=== PATIENT | female | born 1970 | race Caucasian/White ===

== ENCOUNTER 2016-07-23 19:44 | Emergency (ER) | payer MEDICAID ==
[~2016-07-23] VITALS: Ht 154.9 cm; Wt 86.5 kg
[~2016-07-23 19:44] MED LIST: ACET500C5 PO; ALB.5NB20 IH; IBUP200C11 PO; NITR-58 PO; PHEN-538 PO; ZOF8 PO; [UNRECOGNIZED DRUG - CODE] INH
[2016-07-23 20:03] VITALS: Ht 154.9 cm; Wt 86.5 kg
[2016-07-23] MEDS ORDERED: OSLT75C PO (20:13)
[2016-07-23] MEDS ORDERED: CETI10CA PO (20:13)
[2016-07-23] MEDS ORDERED: GUAI120S26 PO (20:13)
[2016-07-23] MEDS ORDERED: ALBU8.5H3 INH (20:13)
[2016-07-23] MEDS ORDERED: IBUP-1542 PO (20:13)
--- NOTE | 2016-07-23 20:20 | ERD ---
ER Documentation Chief Complaint Date/Time DATE: 07/23/16 TIME: 20:16 Chief Complaint fever, body aches, cough, cold symptoms HPI 35-year-old female presents here in emergency department for complaint of fever and bodyaches cough runny congestion for the last 2 days. Patient has been having dry cough, does not cough up any phlegm or blood. Patient does not have any shortness of breath or wheezing. Patient has been having runny nose nasal congestion with clear nasal discharge. Patient does not complain of sore throat or ear pain. ROS All systems reviewed and are negative except as per history of present illness. Medications Home Meds Active Scripts Ibuprofen* (Motrin*) 600 Mg Tab, 600 MG PO Q6H Y for PAIN AND OR ELEVATED TEMP, #30 TAB Prov:KATY WILSON NP 07/23/16 Oseltamivir Phosphate* (Tamiflu*) 75 Mg Capsule, 75 MG PO BID for 5 Days, CAP Prov:KATY WILSON NP 07/23/16 Albuterol Sulfate* (Proair HFA*) 8.5 Gm Hfa.aer.ad, 2 PUFF INH Q4H Y for WHEEZING AND SOB, #1 INHALER Prov:KATY WILSON NP 07/23/16 Cetirizine Hcl* (Zyrtec*) 10 Mg Capsule, 10 MG PO DAILY, #30 TAB.CHEW Prov:KATY WILSON NP 07/23/16 Rohztbeqliz-J-Yixeaibqnq Hb* (Guaifenesin* DM Syrup) 120 Ml Syrup, 10 ML PO Q4H Y for COUGH, #120 ML Prov:KATY WILSON NP 07/23/16 Phenazopyridine Hcl* (Pyridium*) 200 Mg Tab, 200 MG PO TID Y for URINARY PAIN for 2 Days, #6 TAB Prov:MARCELLUS MERCHANT PA-C 01/13/16 Nitrofurantoin Monohyd Macrocr* (Macrobid*) 100 Mg Capsr, 100 MG PO BID for 7 Days, CAP Prov:MARCELLUS MERCHANT PA-C 01/13/16 Ibuprofen* (Advil*) 200 Mg Capsule, 200 MG PO Q6H Y for PAIN, #30 CAP 0 Refills Prov:KENDRA EVANGELISTA PA-C 05/12/15 Acetaminophen* (Tylophen*) 500 Mg Capsule, 500 MG PO Q6H Y for FEVER, #30 TAB 0 Refills Prov:KENDRA EVANGELISTA PA-C 05/12/15 Ondansetron Hcl* (Zofran* ODT) 8 mg -ODT Tab.disper, 8 MG PO Q6 Y for NAUSEA AND /OR VOMITING for 10 Days, TAB Prov:KENDRA EVANGELISTAJayden 05/12/15 Zanamivir (Relenza) 5 Mg/Disk W/Dev Disk.w.dev, 10 MG INH BID, #1 DISK 0 Refills Prov:KENDRA EVANGELISTA PA-C 05/12/15 Reported Medications Albuterol Sulfate* (Albuterol Sulfate* Neb) 20 Ml Nebu, 20 ML IH 10/22/13 Allergies Allergies: Coded Allergies: No Known Drug Allergy (Verified Allergy, Unknown, 07/23/16) Uncoded Allergies: CATS (Allergy, Unknown, 10/22/13) PMhx/Soc History of Surgery: Yes (pancreas and cholecystectomy, hernia repair) Anesthesia Reaction: No Hx Neurological Disorder: No Hx Respiratory Disorders: No Hx Cardiac Disorders: No Hx Psychiatric Problems: No Hx Miscellaneous Medical Probl: No Hx Alcohol Use: No Hx Substance Use: No Hx Tobacco Use: No FmHx Family History: No coronary disease, No diabetes, No other Physical Exam Vitals Vital Signs Date Time Temp Pulse Resp B/P Pulse Ox O2 Delivery O2 Flow Rate FiO2 07/23/16 20:03 100.0 99 18 126/76 99 Physical Exam GENERAL: The patient is well developed and appropriate for usual state of health, in no apparent distress. HEENT: Atraumatic. Ears: Normal tympanic membrane, no erythema or bulging. No ear canal swelling. No ear discharge. Nose: Erythematous nasal turbinates with clear nasal discharge. Throat: oropharynx erythematous with postnasal drip. No tonsillar swelling or tonsillar exudates. No lymphadenopathy. CHEST: Clear to auscultation bilaterally. There are no rales, wheezes or rhonchi. HEART: Regular rate and rhythm. No murmurs, clicks, rubs or gallops. No S3 or S4. ABDOMEN: Soft, nontender and nondistended. Good bowel sounds. No rebound or guarding. No gross peritonitis. No gross organomegaly or masses. No Alford sign or McBurney point tenderness. BACK: No midline or flank tenderness. EXTREMITIES: Equal pulses bilaterally. There is no peripheral clubbing, cyanosis or edema. No focal swelling or erythema. Full range of motion. Grossly neurovascularly intact. NEURO: Alert and oriented. Cranial nerves 2-12 intact. Motor strength in all 4 extremities with 5/5 strength. Sensation grossly intact. Normal speech and gait. SKIN: There is no apparent rash or petechia. The skin is warm and dry. HEMATOLOGIC AND LYMPHATIC: There is no evidence of excessive bruising or lymphedema. No gross cervical, axillary, or inguinal lymphadenopathy. Procedures/MDM Medical Decision Making: Patient symptoms are most likely consistent with upper respiratory tract infection, which viral in origin, high suspicion for influenza. There is low suspicion for Pneumonia at this time since patients lungs sounds are clear, patient O2 saturation is normal and patient doesnt show any respiratory distress. Radiology exam is not indicated at this time. There is low suspicion for other cardiopulmonary emergencies at this time such as CHF , Pulmonary Embolism, Pneumothorax, Aortic Aneurysm or any other cardiopulmonary emergencies at this time. There is low suspicion for sepsis. Patient appears well and is hemodynamically stable. Fever is controlled with medicines. Disposition: Home. Condition: Stable Prescriptions: Tamiflu, guaifenesin DM, Zyrtec, ibuprofen, albuterol Instructions: Patient is advised to take medications as prescribed. Patient is advised to rest. Patient advised to increase fluid intake, do humidifier at home and if possible, do salt water gargles. Patient is advised that if symptoms are worse, shortness of breath, uncontrolled fever, stridor, vomiting, worst signs and symptoms to return to emergency department immediately. Otherwise, patient is advised to follow up with primary doctor in 5-7 days. Departure Diagnosis: Primary Impression: Upper respiratory infection URI type: unspecified viral URI Qualified Code: J06.9 - Viral upper respiratory tract infection Condition: Stable Patient Instructions: Influenza (Adult), Uri, Viral, No Abx (Adult) Referrals: COMMUNITY CLINICS YOU HAVE RECEIVED A MEDICAL SCREENING EXAM AND THE RESULTS INDICATE THAT YOU DO NOT HAVE A CONDITION THAT REQUIRES URGENT TREATMENT IN THE EMERGENCY DEPARTMENT. FURTHER EVALUATION AND TREATMENT OF YOUR CONDITION CAN WAIT UNTIL YOU ARE SEEN IN YOUR DOCTORS OFFICE WITHIN THE NEXT 1-2 DAYS. IT IS YOUR RESPONSIBILITY TO MAKE AN APPOINTMENT FOR ALLIE-UP CARE. IF YOU HAVE A PRIMARY DOCTOR --you should call your primary doctor and schedule an appointment IF YOU DO NOT HAVE A PRIMARY DOCTOR YOU CAN CALL OUR PHYSICIAN REFERRAL HOTLINE AT IF YOU CAN NOT AFFORD TO SEE A PHYSICIAN YOU CAN CHOSE FROM THE FOLLOWING [facility] [address] [facility] [address] [facility] [address] [facility] [address] [facility] [address] [facility]. [facility] [address] [facility]. [facility] YOU HAVE RECEIVED A MEDICAL SCREENING EXAM AND THE RESULTS INDICATE THAT YOU DO NOT HAVE A CONDITION THAT REQUIRES URGENT TREATMENT IN THE EMERGENCY DEPARTMENT. FURTHER EVALUATION AND TREATMENT OF YOUR CONDITION CAN WAIT UNTIL YOU ARE SEEN IN YOUR DOCTORS OFFICE WITHIN THE NEXT 1-2 DAYS. IT IS YOUR RESPONSIBILITY TO MAKE AN APPOINTMENT FOR FOLOW-UP CARE. IF YOU HAVE A PRIMARY DOCTOR --you should call your primary doctor and schedule and appointment IF YOU DO NOT HAVE A PRIMARY DOCTOR YOU CAN CALL OUR PHYSICIAN REFERRAL HOTLINE AT . IF YOU CAN NOT AFFORD TO SEE A PHYSICIAN YOU CAN CHOSE FROM THE FOLLOWING [facility] INSTITUTIONS: [facility] [address] [place] [address] [facility] [address] [place] [address] [facility] [address] [place] [address] KATY WILSON NP Jul 23, 2016 20:20
== END 2016-07-23 20:14 | disposition home or self-care (01) ==
LOC: E/R 19:44
DX: J06.9 Acute upper respiratory infection, unspecified (principal)
CPT/HCPCS: 99284

== ENCOUNTER 2019-02-14 23:37 | Emergency (ER) | payer SELFPAY ==
[~2019-02-14] VITALS: Ht 154.9 cm; Wt 89.2 kg
[~2019-02-14 23:37] MED LIST changes: +ALBU8.5H8 INH; +CETI10CA PO; +GUAI120S25 PO; +IBUP-1542 PO; +LOPE2CAP PO; +ONDA4TAB14 PO; +OSEL75CA23 PO
[2019-02-14 23:41] VITALS: Ht 154.9 cm; Wt 89.2 kg
[2019-02-15] MEDS ORDERED: morphine 2 MG INJ IV STA (01:57)
[2019-02-15] MEDS ORDERED: SOD CHLORIDE 0.9% 1,000 ML IV STA (01:57)
[2019-02-15] MEDS ORDERED: ONDANSETRON 4 MG INJ IV STA (01:57)
[2019-02-15] MEDS ORDERED: LOPERAMIDE 2 MG CAP PO ONE (02:00)
[2019-02-15] MEDS ORDERED: KETOROLAC 30 MG INJ IV ONE (03:39)
[2019-02-15] MEDS ORDERED: ONDANSETRON 4 MG INJ IV ONE (03:44)
[2019-02-15 03:51] VITALS: BP 150/71; PULSE 82; RESP 18
== END 2019-02-15 04:11 | disposition home or self-care (01) ==
LOC: E/R 23:37
DX: R10.9 Unspecified abdominal pain (principal); R19.7 Diarrhea, unspecified; D64.9 Anemia, unspecified; J45.909 Unspecified asthma, uncomplicated
CPT/HCPCS: 36415; 74176; 80053; 81003; 81025; 83690; 85025; 96374; 96375; 96376; 99285; J1885; J2270; J2405; J7030